=== PATIENT | female | born 1960 | race Caucasian/White ===

== ENCOUNTER 2016-11-02 12:35 | Day surgery (SDC) | payer MEDICARE ==
[~2016-11-02] VITALS: Ht 162.6 cm; Wt 77.0 kg
[~2016-11-02 12:35] MED LIST: INDO25CA PO; Lactated Ringer's 1,000 ML IV ONE; OMEP40CA36 PO; PREG25CA PO; VENL37.53 PO
[2016-11-02] MEDS ORDERED: Lidocaine PF 1% 30 mL Inj ONE (12:36)
[2016-11-02] MEDS ORDERED: Propofol 10,000 mCg/mL 20 mL Inj ONE (12:36)
[2016-11-02] MEDS ORDERED: CETI10CA PO (13:24)
[2016-11-02] MEDS ORDERED: LAMO25TA2 PO (13:24)
[2016-11-02] MEDS ORDERED: MOME0.13 IH (13:24)
[2016-11-02] MEDS ORDERED: PRAV20TA2 PO (13:24)
[2016-11-02] MEDS ORDERED: MONT10TA20 PO (13:24)
[2016-11-02 13:36] VITALS: BP 122/70; PULSE 76; RESP 17; O2SAT 97
[2016-11-02] MEDS ORDERED: Lactated Ringer's 1,000 ML IV SCH (13:43)
--- NOTE | 2016-11-02 13:43 | PCM.HPANE ---
Patient Data Date of Service: Nov 02, 2016 Surgeon Admitting Provider: Attending Provider:Wei Koch MD Primary Care Physician:Danni Green Other Provider:Daniel Cain Anesthesia Reason for Visit Rectal Bleeding, Microcytic Anemia Ht/WT & BMI Height (Feet): 5 Height (Inches): 4 Weight (Kilograms): 77 Body Mass Index 28.00 Allergies Coded Allergies: lisinopril (Verified Allergy, Intermediate, cough, 11/01/16) Past Anesthesia History Anesthesia History: Denies:: Anesthesia Reactions, Fam Malignant Hypertherm Diabetes History Hx Diabetes?: No MRSA MRSA: No Medications Hypertension Medication: No Home Meds Incl Beta Tricia: No Reported Medications Cetirizine HCl (Zyrtec)10 Mg [id number] Mg PO HS #30 CAPSULE Ref 0 11/02/16 Montelukast (Singulair)10 Mg Mbqirp18 Mg PO HS Ref 0 11/02/16 Mometasone Furoate (Asmanex)110 Mcg Aer.pow.ba110 Mcg IH 11/02/16 Pravastatin 20 Mg Voyrzz56 Mg PO DAILY Ref 0 11/02/16 Lamotrigine (Lamictal)25 Mg Dkcbry41 Mg PO DAILY #30 TABLET Ref 0 11/02/16 Omeprazole 40 Mg Capsule.dr40 Mg PO DAILY Ref 0 11/01/16 Pregabalin (Lyrica)25 Mg Capsule1 Capsule PO TID 30 Days Ref 0 11/01/16 Indomethacin 25 Mg Capsule1 Capsule PO TID Ref 0 11/01/16 Venlafaxine ER (Effexor XR)37.5 Mg Capsule1 Capsule PO DAILY Ref 0 11/01/16 History History of ENT Problems?: No HEENT History: Positive for:: Hearing Problem Hx of Heart Problems?: No Hx of Respiratory Problem?: Yes Respiratory History: Positive for:: Asthma COPD (" says I do") Pneumonia (bronchial pneumonia) Use of C-PAP Machine Hx Neurologic Problems?: No Neurological History: Denies:: CVA Hx of GI Problems?: Yes Gastrointestinal History: Positive for:: Gastroesphageal Reflux Denies:: Cirrhosis Diverticulitis Gall Bladder Disease Liver Disease Hx of Problems?: No HX of Peritoneal Dialysis: No Female Hx: Denies:: Currently Hx Musculoskeletal Problems?: No Hx of Psycho/Social Problems?: Yes Psycho Social History: Positive for:: Anxiety Hx Depression Hx Surgeries?: No (hyster, sling, appy, ) Hx Any Other Health Problems?: No Hx Diabetes: No Hx Alcohol Use: NoHx Substance Use: No Stop/Bang Treated for Sleep Apnea?: Yes Do You Have a CPAP Machine?: No Risk Assessment Category Category 1A: Patient has history of documented sleep apnea, and HAS NOT received any narcotic, sedative or anesthesia administration during this stay. Category 1B: Patient has history of documented sleep apnea, and HAS received any narcotic , sedative or anesthesia administration during this stay Category 2: Patient has SUSPECTED Obstructive Sleep Apnea, and HAS received any narcotic , sedative or anesthesia administration during this stay. Category 3: Patient has SUSPECTED Obstructive Sleep Apnea and HAS NOT received narcotic, sedative or anesthesia administration during this stay. Category 4: Outpatient in Procedural Areas with known sleep apnea or who screen positive for High Risk via the STOP/BANG questionnaire. Exam Exam Vital Signs Vital Signs Date Time Temp Pulse Resp B/P Pulse Ox O2 Delivery O2 Flow Rate FiO2 11/02/16 13:36 76 17 122/70 97 Room Air General Appearance: Alert, Oriented X3, Cooperative HEENT/AIRWAY: MP 2, Neck Movement (Full), Mouth Opening (Wide) Lungs: Clear to Auscultation, Normal Air Movement Heart: Regular Rate/Rhythm, Normal S1, Normal S2 Plan Impression Patient chart reviewed, patient interviewed and anesthestic plan with risks, benefits, and alternatives discussed, and informed consent obtained. NPO Status: > 2 hours ASA Physical Status: ASA2 Mod Systemic Disease Anesthetic Plan: MAC Bene/Risks/Altern/Consents: Yes HP Complete Prior to Induction: Yes Donato Hooper MD Nov 02, 2016 13:43
[2016-11-02] MEDS ORDERED: MetoCLOpramide 5 mg/mL 2 mL Inj IVPUSH PRN (13:45)
[2016-11-02] MEDS ORDERED: Atropine 0.4 mg/mL Inj IVPUSH PRN (13:45)
[2016-11-02] MEDS ORDERED: Ondansetron 2 mg/mL 2 mL Inj IVPUSH PRN (13:45)
[2016-11-02 14:13] VITALS: BP 133/71; PULSE 71; RESP 14; O2SAT 100
--- NOTE | 2016-11-02 14:20 | PCM.ANEP1 ---
Post Anesthesia Phase 1 PACU Phase 1 Assessment Date of Service: Nov 02, 2016 Vital Signs Vital Signs Date Time Temp Pulse Resp B/P Pulse Ox O2 Delivery O2 Flow Rate FiO2 11/02/16 14:13 36.8 71 14 133/71 100 Room Air 11/02/16 13:36 76 17 122/70 97 Room Air Anesthetic Administered: MAC Level of Alertness: Sleepy, easy to arouse HAM's with Equal Strength: Yes Pain: No Nausea or Vomiting: No Oxygen Delivery: Room Air Lungs: Normal Air Movement Donato Hooper MD Nov 02, 2016 14:20
[2016-11-02 14:23] VITALS: BP 142/76; PULSE 72; RESP 16; O2SAT 97
[2016-11-02 14:33] VITALS: BP 116/62; PULSE 73; RESP 16; O2SAT 100
--- NOTE | 2016-11-02 14:34 | PCM.ANEP2 ---
Post Anesthesia Evaluation ASA/CMS Post Anesthesia Date of Service: Nov 02, 2016 VS in Patient's Normal Range?: Yes Resp Stable; Airway Patent?: Yes CV Function & Hydration Stable: Yes Mental Status Recovered?: Yes Pain control Satisfactory?: Yes N/V Control Satisfactory?: Yes Donato Hooper MD Nov 02, 2016 14:34
--- NOTE | 2016-11-02 14:58 | ENDO ---
[address] [address] ENDOSCOPY PROCEDURE PATIENT: BISI RUANO : 1960 MR#: [id number] ADMIT: 11/02/2016 JOB ID: [id number] TYPE OF OPERATION: Esophagogastroduodenoscopy with biopsy, colonoscopy. PREOPERATIVE DIAGNOSIS(ES): Constipation, microcytic anemia. POSTOPERATIVE DIAGNOSIS(ES): 1. Status post gastric sleeve. 2. Moderate sigmoid diverticulosis. 3. Small internal hemorrhoids. ANESTHESIA: Monitored anesthesia care. COMPLICATIONS: None. BLOOD LOSS: Minimal. DESCRIPTION OF PROCEDURE: After risks and benefits explained to the patient, informed consent was obtained. After anesthesia was administered, an upper endoscope was inserted in the mouth and intubated. The esophagus, stomach, second portion of duodenum, and mucosa carefully examined. After procedure, the scope was withdrawn and procedure terminated. Colonoscope was then inserted from rectum to cecum. Mucosa carefully examined. Prep of the patient was fair. After procedure was done, the scope withdrawn and procedure terminated. FINDINGS: Upon inspection of the esophagus, esophageal mucosa was normal without masses, ulcers, lesions. Z-line located at 35 cm from incisors. Upon entering stomach, there was prior gastric sleeve that was performed. On retroflexion, normal duodenal bulb, 1st and 2nd portion were normal. Biopsies taken at the duodenum. On inspection of the anus, no masses, hemorrhoids, ulcers, or fissures that were seen. Throughout the entire examination, there was diverticulosis, mild, seen in sigmoid colon. No polyps or masses were seen. Retroflexion showed small internal hemorrhoids. IMPRESSION: Small internal hemorrhoids. Mild sigmoid diverticulosis. Status post gastric sleeve RECOMMENDATION: Await pathology results. Follow up in GI clinic as needed.
--- NOTE | 2016-11-05 14:27 | PATH ---
SURGICAL PATHOLOGY Attending Physician:Wei Koch MD CASE STATUS: Signed Out PATIENT NAME: BISI RUANO PID: [id number] : 1960 DATE COLLECTED:11/02/2016 20:32 SPECIMEN: Duodenum, Biopsy CLINICAL HISTORY: 1). DUODENAL BIOPSY FINAL DIAGNOSIS: 1.DUODENUM BIOPSY: DUODENAL MUCOSA WITH NO DIAGNOSTIC ALTERATIONS. Negative for inflammation, sprue, dysplasia, and malignancy. ICD10 CODE R10.9 GROSS DESCRIPTION: The specimen is received in one formalin filled container labeled with the patient's name, sublabeled "duodenal" and consists of a 0.3 x 0.3 x 0.3 CM portion of tissue which is entirely submitted in one cassette. 11/02/2016 DAC MICRO DESCRIPTION: See diagnosis. ICD-9 CODES: CPT CODES: 1: 27616 Electronically Signed Out Perri Graham MD [facility] Pathology [facility] [address], [place] [address] Technical component performed at [facility], [address] [place] [address] Ave[address], [place], [address]
== END 2016-11-02 23:59 | disposition home or self-care (01) ==
LOC: END 12:35
PROVIDERS: ATTEND Internal Medicine Gastroenterology
DX: K62.5 Hemorrhage of anus and rectum (principal); K57.30 Diverticulosis of large intestine without perforation or abscess without bleeding; K64.8 Other hemorrhoids; D50.9 Iron deficiency anemia, unspecified; Z98.84 Bariatric surgery status; Z79.899 Other long term (current) drug therapy; Z87.891 Personal history of nicotine dependence
CPT/HCPCS: 43239; 45378; 88305; G0500; J7120